=== PATIENT | male | born 1995 | race Caucasian/White ===

== ENCOUNTER 2017-04-04 16:01 | Emergency (ER) | payer MEDICAID, MEDICARE, OTHER ==
[~2017-04-04] VITALS: Ht 182.9 cm; Wt 79.4 kg
[2017-04-04] MEDS ORDERED: SODIUM CHLORIDE 0.9% 1,000 ML IV ONE (16:11)
[2017-04-04 17:31] LABS: Basophils # (auto) 0 uL; Basophils % (auto) 0.3 % (0.0-2.0); Eosinophils # (auto) 0.1 uL; Eosinophils % (auto) 0.8 % (0.0-7.0); Hematocrit 44.8 % (41.0-53.0); Hemoglobin 15.4 g/dL (13.5-17.5); Lymphocytes # (auto) 1.1 uL; Lymphocytes % (auto) 15.3 % (10.0-50.0); Mean Corpuscular Hemoglobin 30.9 pg (28.0-32.0); Mean Corpuscular Hgb Conc. 34.5 g/dL (32.0-36.0); Mean Corpuscular Volume 89.8 fL (80.0-100.0); Mean Platelet Volume 7.8 fL (7.4-10.4); Monocytes # (auto) 0.4 uL; Monocytes % (auto) 6.4 % (0.0-12.0); Neutrophils # (auto) 5.3 uL; Neutrophils % (auto) 77.2 % (37.0-80.0); Platelet Count (auto) 236 10^3/uL (140-450); White Blood Cell 6.9 10^3/uL (4.4-10.8)
[2017-04-04 17:43] LABS: INR 1.09 (0.9-1.15); Partial Thromboplastin Time 26.6 sec (22.64-33.71); Prothrombin Time 11.8 sec (9.37-12.3)
[2017-04-04] MEDS ORDERED: IOHEXOL 350 MG/ML 100ML IJ ONE (17:52)
[2017-04-04 17:56] LABS: Urine RBC None Seen /hpf (0 - 3)
[2017-04-04 17:59] LABS: Albumin 4.2 g/dL (3.4-5.0); Alkaline Phosphatase 68 U/L (45-117); Anion Gap 8 (5-15); Aspartate Aminotransferase 22 U/L (15-37); BUN/Creatinine Ratio 9.7; Bilirubin, Total 0.4 mg/dL (0.2-1.0); Blood Urea Nitrogen 9 mg/dL (7-18); Calcium 8.8 mg/dL (8.5-10.1); Carbon Dioxide 26 mmol/L (21-32); Chloride 105 mmol/L (98-107); GFR African American 129 mL/min; GFR Non-African American 107 mL/min; Glucose 90 mg/dL (74-106); Sodium 139 mmol/L (136-145); Total Protein 7.5 g/dL (6.4-8.2)
[2017-04-04 18:07] LABS: Urine Bilirubin Negative (Negative); Urine Blood Negative /uL (Negative); Urine Glucose Normal (Normal); Urine Ketone Negative (Negative); Urine Nitrite Negative (Negative); Urine Urobilinogen Normal (Negative)
[2017-04-04 18:08] LABS: Urine Color Straw (Yellow)
[2017-04-04] MEDS ORDERED: ALPRAZolam 0.25 MG TAB PO SCH (22:00)
[2017-04-04 23:18] VITALS: BP 109/81
== END 2017-04-04 23:34 | disposition home or self-care (01) ==
LOC: ER 16:09
DX: R41.82 Altered mental status, unspecified (principal); G92 Toxic encephalopathy; F17.210 Nicotine dependence, cigarettes, uncomplicated
CPT/HCPCS: 36415; 70450; 70496; 70498; 71010; 74176; 80053; 80307; 80320; 81001; 82962; 84484; 85025; 85610; 85730; 96360; 99285; J7030; Q9967